=== PATIENT | male | born 1980 | race Caucasian/White ===

== ENCOUNTER 2022-06-14 14:42 | Outpatient (CLI) | payer OTHER, SELFPAY ==
[2022-06-14 15:02] LABS: Albumin* 5.1 g/dL (3.3-5.0); Chloride* 100 mmol/L (96-114); Potassium* 5.1 mmol/L (3.6-5.1); Sodium* 140 mmol/L (135-149)
[2022-06-14 15:04] LABS: Bilirubin Total* 0.7 mg/dL (0.1-1.5); Carbon Dioxide* 32 mmol/L (20-32); Cholesterol* 241 mg/dL (90-199); Creatinine* 1.2 mg/dL (0.5-1.5); Estimated Glomerular Filt Rate 78 ml/min
[2022-06-14 15:05] LABS: Alanine Aminotransferase* 70 U/L (4-50); Alkaline Phosphatase* 87 U/L (40-150); Aspartate Amino Transferase* 51 U/L (12-35); Blood Urea Nitrogen* 17 mg/dL (5-24); Calcium* 10.1 mg/dL (8.4-10.6); Triglycerides* 131 mg/dL (40-149)
[2022-06-14 15:06] LABS: HDL Cholesterol* 54 mg/dL (>=40); LDL Cholesterol Calculated 161 mg/dL (<100)
[2022-06-14 17:06] LABS: Glucose* 100 mg/dL (60-115)
== END 2022-06-14 14:43 | disposition home or self-care (01) ==
PROVIDERS: PCP Family Medicine; Visit Provider Family Medicine
DX: Z00.00 Encounter for general adult medical examination without abnormal findings (principal); E78.00 Pure hypercholesterolemia, unspecified
CPT/HCPCS: 80053; 80061

== ENCOUNTER 2023-05-30 08:44 | Outpatient (CLI) | payer OTHER, SELFPAY | END 2023-05-30 08:45 | disposition home or self-care (01) | LOC: NFLDREF 06-03 07:23 | PROVIDERS: PCP Family Medicine; Referring Provider Family Medicine; Visit Provider Family Medicine | DX: Z00.00 Encounter for general adult medical examination without abnormal findings (principal); E78.5 Hyperlipidemia, unspecified; Z23 Encounter for immunization; M79.18 Myalgia, other site; R03.0 Elevated blood-pressure reading, without diagnosis of hypertension | CPT/HCPCS: 80053; 80061 ==

== ENCOUNTER 2023-08-30 07:50 | Outpatient (CLI) | payer OTHER, SELFPAY | END 2023-08-30 07:51 | disposition home or self-care (01) | LOC: NFLDREF 09-05 15:37 | PROVIDERS: PCP Family Medicine; Referring Provider Family Medicine; Visit Provider Family Medicine | DX: E78.00 Pure hypercholesterolemia, unspecified (principal); R74.8 Abnormal levels of other serum enzymes | CPT/HCPCS: 80061; 80076 ==

== ENCOUNTER 2024-07-22 07:58 | Outpatient (CLI) | payer OTHER, SELFPAY | END 2024-07-22 07:59 | disposition home or self-care (01) | LOC: FRMREF 07:58 | PROVIDERS: Visit Provider Nurse Practitioner Family | DX: E78.5 Hyperlipidemia, unspecified (principal) | CPT/HCPCS: 80061 ==

== ENCOUNTER 2025-06-23 10:05 | Outpatient (CLI) | payer OTHER, SELFPAY | END 2025-06-23 10:06 | disposition home or self-care (01) | PROVIDERS: PCP Nurse Practitioner Family; Visit Provider Nurse Practitioner Family | DX: E78.00 Pure hypercholesterolemia, unspecified (principal); R74.8 Abnormal levels of other serum enzymes | CPT/HCPCS: 80053; 80061 ==